=== PATIENT | female | born 1990 | race American Indian/Alaskan Native ===

== ENCOUNTER 2019-12-03 11:39 | Outpatient (CLI) | payer MEDICAID ==
[2019-12-03 12:39] VITALS: BP 124/71
[2019-12-03] MEDS ORDERED: LACTATED RINGERS 500 ML IV ONE (12:55)
[2019-12-03 13:27] LABS: Bacteria,Urine 2+ /HPF (Negative); Bilirubin,Urine NEG (Negative); Blood,Urine NEG (Negative); Color,Urine Yellow (Yellow); Mucus,Urine FEW /HPF; Protein,Urine <15 mg/dL mg/dL (Negative); Urobilinogen,Urine < 2.0 mg/dL (<2.0)
--- NOTE | 2019-12-03 14:58 | Event Note ---
Date: 12/03/19 17 y/o today at 29 weeks EGA came to L+D with 2 day Hx of urinary frequency and lower abdominal pain. Pt says her course has been uneventful to date. Monitor: No CTXs, reactive, reassuring U/A= unremarkable Cx= long, closed, posterior, VTX floating Abdomen: not tender IMP: Abdominal wall pain PLAN: advised abdominal support
== END 2019-12-03 14:50 | disposition home or self-care (01) ==
LOC: TRG 11:39 → APU 11:39 → TRG 14:50
PROVIDERS: ATTEND Obstetrics & Gynecology
DX: O47.02 False labor before 37 completed weeks of gestation, second trimester (principal); Z3A.26 26 weeks gestation of pregnancy
CPT/HCPCS: 59025; 81001

== ENCOUNTER 2019-12-30 08:32 | Outpatient (CLI) | payer MEDICAID ==
[2019-12-30 09:03] VITALS: BP 116/73
[2019-12-30] MEDS ORDERED: LACTATED RINGERS 1,000 ML IV ONE (09:59)
[2019-12-30 10:21] LABS: Bilirubin,Urine NEG (Negative); Blood,Urine NEG (Negative); Color,Urine Yellow (Yellow); Protein,Urine <15 mg/dL mg/dL (Negative); Urobilinogen,Urine < 2.0 mg/dL (<2.0); WBC,Urine < 1.0 /HPF (0.0-6.0)
--- NOTE | 2020-01-01 11:25 | Ultrasound Report ---
ULTRASOUND OBSTETRIC LIMITED ULTRASOUND BIOPHYSICAL PROFILE INDICATION / CLINICAL INFORMATION: BPP/PLACENTA WELL BEING. Clinical Gestational Age (GA): 29 weeks, 6 days COMPARISON: None available. FINDINGS: BREATHING MOVEMENT = 2 GROSS BODY MOVEMENT = 2 TONE = 2 QUALITATIVE AMNIOTIC FLUID VOLUME = 2 TOTAL BIOPHYSICAL SCORE = 8/8 HEART RATE (beats per minute): 129 AMNIOTIC FLUID INDEX (cm) = 6.7 (normal = 7-24 cm) PRESENTATION: Cephalic. ADDITIONAL FINDINGS: Grade 0 placenta without evidence of placental abruption. IMPRESSION: 1. Biophysical Score = 8/8 2. Slightly decreased amniotic fluid index as above. 3. Additional findings as above. Signer Name: Rachid Jaime MD Signed: 12/30/2019 1:50 PM Workstation Name: [id number]
== END 2019-12-30 13:00 | disposition home or self-care (01) ==
LOC: TRG 08:32 → APU 08:33 → TRG 13:00
PROVIDERS: ATTEND Obstetrics & Gynecology
DX: O26.893 Other specified pregnancy related conditions, third trimester (principal); R10.31 Right lower quadrant pain; Z3A.29 29 weeks gestation of pregnancy
CPT/HCPCS: 59025; 76815; 76819; 81001

== ENCOUNTER 2019-12-31 12:44 | Outpatient (CLI) | payer MEDICAID ==
[2019-12-31] MEDS ORDERED: ACETAMINOPHEN 500 MG TAB PO STA (14:19)
[2019-12-31] MEDS ORDERED: ACETAMINOPHEN 500 MG TAB ONE (14:23)
== END 2019-12-31 14:20 | disposition home or self-care (01) ==
LOC: APU 12:44 → TRG 12:44
PROVIDERS: ATTEND Obstetrics & Gynecology
DX: O26.893 Other specified pregnancy related conditions, third trimester (principal); R10.9 Unspecified abdominal pain; Z3A.30 30 weeks gestation of pregnancy
CPT/HCPCS: 59025

== ENCOUNTER 2020-01-25 11:14 | Inpatient (IN) | payer MEDICAID ==
[2020-01-25] MEDS ORDERED: LACTATED RINGERS 1,000 ML IV ONE (12:38)
--- NOTE | 2020-01-25 14:08 | Ultrasound Report ---
ULTRASOUND OBSTETRIC INDICATION / CLINICAL INFORMATION: low fluid. Clinical Gestational Age (GA): TECHNIQUE: Transabdominal. COMPARISON: None available. FINDINGS: There is a single intrauterine . Biparietal Diameter = cm = weeks, day(s). Heart Rate: 152 beats per minute. Position: cephalic. Amniotic Fluid Volume: Decreased Amniotic Fluid Index (CELESTINO) in cm (if calculated): 5.3. Maternal Adnexa: No significant abnormality. IMPRESSION: 1. Decreased amniotic fluid as noted Signer Name: Keith Yang MD Signed: 01/25/2020 2:04 PM Workstation Name: [id number]
[2020-01-25] MEDS: BETAMET ACET/BETAMET NA PH 6 MG/ML INJ 5 ML MDV IM SCH (15:19)
--- NOTE | 2020-01-25 15:42 | History and Physical Report ---
History of Present Illness Date of examination: 01/25/20 Date of admission: 01/25/2020 Chief complaint: oligohydramnios History of present illness: 29 yo G1 @ 33.4 weeks sent from [facility] for oligohydramnios in office with CELESTINO of ~4. no LOF, no VB and no contractions. Nitrazine negative in OB triage, repeat CELESTINO 5 as per [facility] recommendation, plan for admission, steroids and repeat CELESTINO in am, IF CELESTINO persistently low plan for delivery when she has completed steroids per [facility]. PMHX: CHTN on labetalol 200mg BID Past History Past Medical History: hypertension Past Surgical History: no surgical history Family/Genetic History: none Social history: no significant social history - Obstetrical History Expected Date of Delivery: 03/10/20 Actual Gestation: 33 Week(s) 4 Day(s) : 1 Medications and Allergies Allergies Allergy/AdvReac Type Severity Reaction Status Date / Time No Known Allergies Allergy Verified 01/25/20 11:38 Home Medications Medication Instructions Recorded Confirmed Last Taken Type Nitrofurantoin [place]/M-Cryst 100 mg PO Q12HR #20 capsule 01/03/20 Unknown Rx [Macrobid CAP] Active Meds: Active Medications Betamethasone Acet/Betameth SodPhos (Celestone Soluspan) 12 mg IM Q24H MICHAEL Stop: 01/26/20 15:01 Last Admin: 01/25/20 15:19 Dose: 12 mg Documented by: Review of Systems All systems: negative (denies OB compalint) - Vital Signs Vital signs: Vital Signs Pulse BP 82 134/87 01/25/20 11:51 01/25/20 11:51 Temp Pulse Resp BP Pulse Ox 98 F 85 20 123/65 01/25/20 11:52 01/25/20 14:54 01/25/20 11:52 01/25/20 14:54 - Physical Exam Cardiovascular: Regular rate Lungs: Positive: Clear to auscultation Abdomen: Positive: normal appearance, soft, normal bowel sounds Genitourinary (Female): Positive: normal external genitalia Anus/Rectum: Positive: normal perianal skin Extremities: Positive: normal Deep Tendon Reflex Grade: Normal +2 - Obstetrical FHR: category 1 Results All other labs normal. 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
[2020-01-25] MEDS ORDERED: LACTATED RINGERS 1,000 ML ONE (16:07)
[2020-01-25 19:15] LABS: Basophils % (Auto) 0.3 % (0.0-1.8); Eosinophils % (Auto) 0.1 % (0.0-4.3); Hemoglobin 10.4 gm/dl (10.1-14.3); Lymphocytes # (Auto) 0.9 K/mm3 (1.2-5.4); Lymphocytes % (Auto) 10.3 % (13.4-35.0); Mean Corpuscular HGB Conc 34 % (30-34); Mean Corpuscular Volume 88 fl (79-97); Monocytes # (Auto) 0.2 K/mm3 (0.0-0.8); Platelet Count 267 K/mm3 (140-440); Red Blood Count 3.51 M/mm3 (3.65-5.03)
[2020-01-25 19:34] LABS: Alanine Aminotransferase 22 units/L (7-56); Uric Acid 4.7 mg/dL (3.5-7.6)
--- NOTE | 2020-01-26 07:40 | Ultrasound Report ---
US OB follow up INDICATION / CLINICAL INFORMATION: repeat CELSETINO. COMPARISON: One day prior FINDINGS: lie is cephalic. heart rate is 134. Amniotic fluid index is 4.7 cm (previously 5.3 cm). IMPRESSION: 1. Persistent oligohydramnios, as above. Signer Name: Sandro Castillo MD Signed: 01/26/2020 7:36 AM Workstation Name: [employer]
[2020-01-26] MEDS ORDERED: DINOPROSTONE 10 MG VAG SUPP VG NR (08:45)
--- NOTE | 2020-01-26 09:08 | Progress Note ---
Assessment and Plan - Patient Problems (1) Oligohydramnios antepartum Current Visit: Yes Status: Acute Plan to address problem: --For IOL for oligohydramnios --S/p BMZ x 1, planning for BMZ #2 during IOL --Proceed with cervidil per protocol for cervical ripening, followed by pitocin prn --Anticipate --Desires future fertility (2) Chronic hypertension affecting Current Visit: Yes Status: Acute Plan to address problem: --BPs well controlled --Continue Labetolol 200mg BID --Monitor for s/sx of preeclampsia Subjective - Subjective Date of service: 01/26/20 Principal diagnosis: oligohydramnois Interval history: Repeat CELESTINO today found to be 4.7. Oligohydramnios. Given olighydramnios, plan for IOL. Patient agrees. Plan to start with cervidil followed by pitocin prn. No current labor complaints or PIH symptoms. + FM. Blood pressures well controlled on current regimen. Patient reports: new complaints Objective - Vital Signs Vital Signs: Vital Signs - 12hr 01/25/20 01/25/20 01/26/20 23:20 23:44 00:00 Temperature 97.9 F Pulse Rate 88 83 83 Respiratory 18 Rate Blood Pressure 128/82 121/61 Blood Pressure 121/61 [Left] O2 Sat by Pulse 100 Oximetry 01/26/20 01/26/20 01/26/20 03:22 04:00 04:17 Temperature 98.2 F Pulse Rate 86 92 H 92 H Respiratory 18 Rate Blood Pressure 144/73 130/77 Blood Pressure 130/77 [Left] O2 Sat by Pulse 98 Oximetry 01/26/20 01/26/20 01/26/20 05:17 06:16 07:30 Temperature 97.7 F Pulse Rate 94 H 90 Respiratory 18 Rate Blood Pressure 135/76 137/91 Blood Pressure [Left] O2 Sat by Pulse Oximetry 01/26/20 07:36 Temperature Pulse Rate 88 Respiratory Rate Blood Pressure 132/87 Blood Pressure [Left] O2 Sat by Pulse Oximetry - Exam Abdomen: Present: normal appearance, normal bowel sounds, other (gravid) FHR: category 1 Uterine Contraction Monitor Mode: External Uterine Contraction Pattern: Absent - Labs Labs: Abnormal Labs 01/25/20 01/25/20 18:47 18:47 RBC 3.51 L RDW 13.0 L Lymph % (Auto) 10.3 L Lymph # (Auto) 0.9 L Seg Neutrophils % 87.3 H Seg Neutrophils # 8.0 H Lactate Dehydrogenase 220 H Laboratory Results - last 24 hr 01/25/20 01/25/20 01/25/20 18:40 18:47 18:47 WBC 9.2 RBC 3.51 L Hgb 10.4 Hct 31.0 MCV 88 MCH 30 MCHC 34 RDW 13.0 L Plt Count 267 Lymph % (Auto) 10.3 L [place] % (Auto) 2.0 Eos % (Auto) 0.1 Baso % (Auto) 0.3 Lymph # (Auto) 0.9 L [place] # (Auto) 0.2 Eos # (Auto) 0.0 Baso # (Auto) 0.0 Seg Neutrophils % 87.3 H Seg Neutrophils # 8.0 H Creatinine 0.6 Estimated GFR > 60 Uric Acid 4.7 AST 23 ALT 22 Lactate Dehydrogenase 220 H Blood Type B POSITIVE Antibody Screen Negative
[2020-01-26] MEDS ORDERED: LACTATED RINGERS 1,000 ML ONE (10:03)
[2020-01-26] MEDS: BETAMET ACET/BETAMET NA PH 6 MG/ML INJ 5 ML MDV IM SCH (15:12)
[2020-01-26] MEDS ORDERED: AMPICILLIN/NS 2 GM/100 ML 2 GM/100 ML BAG IV ONE (18:00)
[2020-01-26] MEDS ORDERED: AMPICILLIN/NS 1 GM/50 ML 1 GM/50 ML BAG IV ONE (22:00)
[2020-01-27] MEDS ORDERED: LACTATED RINGERS 1,000 ML ONE (00:56)
[2020-01-27] MEDS: LACTATED RINGERS 1,000 ML IV SCH (01:00)
[2020-01-27] MEDS: AMPICILLIN/NS 1 GM/50 ML 1 GM/50 ML BAG IV SCH ×2 (03:05→06:40)
[2020-01-27] MEDS ORDERED: DINOPROSTONE 10 MG VAG SUPP VG ONE (06:18)
--- NOTE | 2020-01-27 09:58 | Progress Note ---
Assessment and Plan - Patient Problems (1) Chronic hypertension affecting Current Visit: Yes Status: Acute Plan to address problem: Controlled well. Cont Labetalol. (2) Oligohydramnios antepartum Current Visit: Yes Status: Acute Plan to address problem: Cont IOL. Will give another Cervidil for ripening. Subjective - Subjective Date of service: 01/27/20 Principal diagnosis: oligohydramnois Patient reports: new complaints (No new complaints. PT was 1.5 cm and thick on exam this am per RN. PT is s/p cervidil removal this morning. Good FM. No preeclamptic sxs.) Objective - Vital Signs Vital Signs: Vital Signs - 12hr 01/26/20 01/26/20 01/26/20 21:57 22:23 22:31 Temperature Pulse Rate 114 H 105 H 105 H Blood Pressure 122/56 129/67 129/67 01/26/20 01/27/20 01/27/20 23:29 00:23 01:23 Temperature Pulse Rate 93 H 98 H 94 H Blood Pressure 145/90 132/86 125/64 01/27/20 01/27/20 01/27/20 02:23 03:23 04:23 Temperature Pulse Rate 111 H 114 H 96 H Blood Pressure 111/64 122/70 139/81 01/27/20 01/27/20 01/27/20 05:23 06:23 06:24 Temperature Pulse Rate 100 H 89 105 H Blood Pressure 141/80 133/78 116/72 01/27/20 01/27/20 01/27/20 07:25 08:11 08:23 Temperature 98.0 F Pulse Rate 93 H 105 H Blood Pressure 132/72 121/69 01/27/20 09:23 Temperature Pulse Rate 96 H Blood Pressure 134/80 - Exam FHR: auscultation normal, category 1 Uterine Contraction Pattern: Irregular - Labs Labs: Abnormal Labs 01/25/20 01/25/20 18:47 18:47 RBC 3.51 L RDW 13.0 L Lymph % (Auto) 10.3 L Lymph # (Auto) 0.9 L Seg Neutrophils % 87.3 H Seg Neutrophils # 8.0 H Lactate Dehydrogenase 220 H Laboratory Results - last 24 hr 01/26/20 01/26/20 09:24 19:13 Coronavirus (PCR) Negative Rubella IgG Antibody Immune
[2020-01-27] MEDS ORDERED: ACETAMINOPHEN 325 MG TAB PO ONE (18:00)
[2020-01-28] MEDS ORDERED: OXYTOCIN DRIP 30,000 MILLIUNITS/500 ML BAG IV ONE (00:08)
[2020-01-28] MEDS ORDERED: OXYTOCIN DRIP 30 UNITS/500 ML BAG IV SCH (01:00)
--- NOTE | 2020-01-28 10:07 | Progress Note ---
Assessment and Plan A: at 34 weeks gestation. Oligohydramnios. IOL. P: Care is being managed by due to gestation. Continuous EFM. GBS prophylaxis when in active labor. Subjective - Subjective Date of service: 01/28/20 Principal diagnosis: oligohydramnois Patient reports: movement normal, contractions, no new complaints, no loss of fluid, no vaginal bleeding Objective - Vital Signs Vital Signs: Vital Signs - 12hr 01/28/20 01/28/20 01/28/20 00:15 00:21 08:50 Temperature 98.0 F Pulse Rate 106 H 106 H 89 Respiratory 16 Rate Blood Pressure 136/71 136/71 Blood Pressure 138/83 [Right] O2 Sat by Pulse 99 Oximetry 01/28/20 09:06 Temperature Pulse Rate 89 Respiratory Rate Blood Pressure 134/83 Blood Pressure [Right] O2 Sat by Pulse Oximetry - Exam Narrative Exam: Patient at 34 weeks being induced for oligohydramnios. Has received course of steroids. Abdomen: Present: normal appearance, soft. Absent: distention, tenderness, guarding, rigidity Uterine Contraction Pattern: Irregular Uterine Contraction Intensity: Mild - Labs Labs: Abnormal Labs 01/25/20 01/25/20 18:47 18:47 RBC 3.51 L RDW 13.0 L Lymph % (Auto) 10.3 L Lymph # (Auto) 0.9 L Seg Neutrophils % 87.3 H Seg Neutrophils # 8.0 H Lactate Dehydrogenase 220 H
[2020-01-28] MEDS: LACTATED RINGERS 1,000 ML IV SCH ×2 (12:49→23:39)
[2020-01-28] MEDS: AMPICILLIN/NS 1 GM/50 ML 1 GM/50 ML BAG IV SCH (14:00)
[2020-01-28] MEDS ORDERED: ACETAMINOPHEN 325 MG TAB PO ONE (16:36)
[2020-01-28] MEDS ORDERED: DINOPROSTONE 10 MG VAG SUPP VG ONE (21:00)
[2020-01-29 00:22] LABS: Basophils % (Auto) 0.3 % (0.0-1.8); Eosinophils % (Auto) 0.5 % (0.0-4.3); Hematocrit 27.4 % (30.3-42.9); Hemoglobin 9.2 gm/dl (10.1-14.3); Lymphocytes # (Auto) 2.2 K/mm3 (1.2-5.4); Lymphocytes % (Auto) 26.8 % (13.4-35.0); Mean Corpuscular HGB Conc 34 % (30-34); Mean Corpuscular Volume 89 fl (79-97); Monocytes # (Auto) 0.9 K/mm3 (0.0-0.8); Monocytes % (Auto) 10.9 % (0.0-7.3); Platelet Count 247 K/mm3 (140-440); Red Blood Count 3.09 M/mm3 (3.65-5.03)
--- NOTE | 2020-01-29 09:55 | Ultrasound Report ---
ULTRASOUND OBSTETRIC LIMITED ULTRASOUND BIOPHYSICAL PROFILE INDICATION / CLINICAL INFORMATION: Evaluate amniotic fluid index and well being. COMPARISON: Limited OB ultrasound from 01/26/2020. FINDINGS: AMNIOTIC FLUID INDEX (cm) = 6.3 PRESENTATION: Cephalic. HEART RATE (beats per minute): 156 ADDITIONAL FINDINGS: None. IMPRESSION: Decreased amniotic fluid index of 6.3 cm. No other significant sonographic abnormality of the pelvis. Signer Name: Chidi José MD Signed: 01/29/2020 9:50 AM Workstation Name: [email or web address]
[2020-01-29] MEDS ORDERED: fentaNYL 100 MCG/2 ML INJ ONE (10:25)
--- NOTE | 2020-01-29 11:47 | Ultrasound Report ---
BIOPHYSICAL PROFILE HISTORY: Evaluate well being. FINDINGS: Biophysical profile is normal at 8/8. Signer Name: Linden Richey MD Signed: 01/29/2020 11:43 AM Workstation Name: [id number]
--- NOTE | 2020-01-29 13:03 | Progress Note ---
Assessment and Plan - Patient Problems (1) Oligohydramnios antepartum Current Visit: Yes Status: Acute Plan to address problem: --Hold IOL for oligohydramnios at CELESTINO now resolved at 6.3 cm on recheck, BPP 8/8 --S/p BMZ x 2, s/p cervidil and pitocin without significant cervical change --Repeat CELESTINO in AM, 01/29 AM. If wnl, plan for discharge home. If oligohydramnois, continue IOL --Plan discussed with [facility], agreeable with plan of care --Anticipate if labor or otherwise indicated --Desires future fertility (2) Chronic hypertension affecting Current Visit: Yes Status: Acute Plan to address problem: --BPs well controlled --Continue Labetolol 200mg BID --Monitor for s/sx of preeclampsia Subjective - Subjective Date of service: 01/29/20 Principal diagnosis: oligohydramnois Interval history: Late entry. Saw patient at 0915AM. Patient frustrated with the lack of delivery s/p pitocin and cerdicil, cervix still at 1 cm. Patient to obtain US to assess for fluid and place cook catheter. Plan for remove cook catheter if no longer oligo. US showing CELESTINO 6.3. Plan of care discussed with Byron with [facility]. Hold induction for now. Repeat CELESTINO in AM. If normalized plan for discharge home. Plan to monitor fluid at outpatient. Patient reports: movement normal, contractions, no new complaints, no loss of fluid, no vaginal bleeding Objective - Vital Signs Vital Signs: Vital Signs - 12hr 01/29/20 01/29/20 01/29/20 04:03 04:05 07:30 Temperature 98.3 F 97.7 F Pulse Rate 87 Blood Pressure 133/77 - Exam Abdomen: Present: normal appearance, normal bowel sounds, other (gravid) FHR: category 1 Uterine Contraction Monitor Mode: External Uterine Contraction Pattern: Irregular - Labs Labs: Abnormal Labs 01/25/20 01/25/20 01/28/20 18:47 18:47 23:57 RBC 3.51 L 3.09 L Hgb 9.2 L Hct 27.4 L RDW 13.0 L 13.0 L Lymph % (Auto) 10.3 L [place] % (Auto) 10.9 H Lymph # (Auto) 0.9 L [place] # (Auto) 0.9 H Seg Neutrophils % 87.3 H Seg Neutrophils # 8.0 H Lactate Dehydrogenase 220 H Laboratory Results - last 24 hr 01/28/20 01/28/20 18:30 23:57 WBC 8.4 RBC 3.09 L Hgb 9.2 L Hct 27.4 L MCV 89 MCH 30 MCHC 34 RDW 13.0 L Plt Count 247 Lymph % (Auto) 26.8 [place] % (Auto) 10.9 H Eos % (Auto) 0.5 Baso % (Auto) 0.3 Lymph # (Auto) 2.2 [place] # (Auto) 0.9 H Eos # (Auto) 0.0 Baso # (Auto) 0.0 Seg Neutrophils % 61.5 Seg Neutrophils # 5.1 Blood Type B POSITIVE Antibody Screen Negative
[2020-01-30] MEDS: LACTATED RINGERS 1,000 ML IV SCH (05:56)
[2020-01-30 08:01] VITALS: BP 142/96
--- NOTE | 2020-01-30 09:57 | Ultrasound Report ---
LIMITED OB ULTRASOUND HISTORY: Provided clinical history of query amniotic fluid index. Gestational age is 34 weeks and 2 d ays. COMPARISON: 01/29/2020 and 01/26/2020 limited OB ultrasounds, 01/25/2020 Limited OB ultrasound TECHNIQUE: Oh scale sonographic images were obtained of the pelvis using transabdominal ultrasound. FINDINGS: Cardiac activity is within normal limits at167 beats per minute. Presentation: Cephalic Amniotic fluid index: 9.4 cm Additional findings: None. IMPRESSION: 1. Live intrauterine canas gestation with cephalic presentation and amniotic fluid index within n ormal limits. Signer Name: Rachid Jaime MD Signed: 01/30/2020 8:57 AM Workstation Name: [id number]
== END 2020-01-30 09:50 | disposition home or self-care (01) | DRG 781 ==
LOC: TRG 11:14 → APU 11:17 → LD 15:32 → TRG 01-26 18:30 → LD 01-26 18:33
PROVIDERS: ADMIT Obstetrics & Gynecology; ATTEND Obstetrics & Gynecology
DX: O41.03X0 Oligohydramnios, third trimester, not applicable or unspecified (principal); O10.013 Pre-existing essential hypertension complicating pregnancy, third trimester; Z3A.33 33 weeks gestation of pregnancy; Z20.828 Contact with and (suspected) exposure to other viral communicable diseases
CPT/HCPCS: 36415; 76815; 76816; 76819; 82565; 83615; 84450; 84460; 84550; 85025; 85027; 86762; 86850; 86900; 86901; 87116; G0378; J0290; J0702; J2590; J3010; J7120; U0003-CS

== ENCOUNTER 2020-01-30 18:28 | Inpatient (IN) | payer MEDICAID ==
--- NOTE | 2020-01-30 19:21 | Anesthesia Consultation ---
Anesthesia Consult and Med Hx Date of service: 01/30/20 - Airway Anesthetic Teeth Evaluation: Good ROM Head & Neck: Adequate Mental/Hyoid Distance: Adequate Mallampati Class: Class II Intubation Access Assessment: Probably Good - Pulmonary Exam CTA: Yes - Cardiac Exam Cardiac Exam: RRR - Pre-Operative Health Status ASA Pre-Surgery Classification: ASA3 Proposed Anesthetic Plan: Spinal - Pulmonary Hx Asthma: No - Cardiovascular System Hx Hypertension: Yes (takes labetalol) - Central Nervous System Hx Seizures: No Hx Psychiatric Problems: No - Endocrine Hx Renal Disease: No Hx Hypothyroidism: No Hx Hyperthyroidism: No - Hematic Hx Anemia: No Hx Sickle Cell Disease: No - Other Systems Hx Alcohol Use: No Hx Obesity: Yes
--- NOTE | 2020-01-30 19:22 | Anesthesia Day of Surgery ---
Anesthesia Day of Surgery - Day of Surgery Patient Examined: Yes Patient H&P Reviewed: Yes Patient is NPO: Yes (Ate fatty meal at 1700, ok for surgery at 0100)
[2020-01-30] MEDS ORDERED: LACTATED RINGERS 1,000 ML ONE (19:37)
[2020-01-30] MEDS ORDERED: BICITRA ORAL LIQD 30ML PO ONE (20:35)
[2020-01-30] MEDS ORDERED: METOCLOPRAMIDE 10 MG/2 ML INJ IV ONE (20:35)
[2020-01-30] MEDS ORDERED: FAMOTIDINE 20 MG/2 ML INJ IV ONE (20:35)
[2020-01-30 20:45] LABS: Basophils % (Auto) 0.3 % (0.0-1.8); Eosinophils # (Auto) 0.1 K/mm3 (0.0-0.4); Eosinophils % (Auto) 0.6 % (0.0-4.3); Hemoglobin 9.6 gm/dl (10.1-14.3); Lymphocytes # (Auto) 2.1 K/mm3 (1.2-5.4); Lymphocytes % (Auto) 21.8 % (13.4-35.0); Mean Corpuscular HGB Conc 33 % (30-34); Mean Corpuscular Volume 88 fl (79-97); Monocytes # (Auto) 0.7 K/mm3 (0.0-0.8); Monocytes % (Auto) 7.6 % (0.0-7.3); Platelet Count 268 K/mm3 (140-440); Red Cell Distribution Width 12.9 % (13.2-15.2)
[2020-01-30] MEDS ORDERED: LACTATED RINGERS 1,000 ML IV SCH (21:00)
[2020-01-31] MEDS: LACTATED RINGERS 1,000 ML IV SCH ×4 (04:24→17:28)
[2020-01-31] MEDS ORDERED: BICITRA ORAL LIQD 30ML PO ONE (07:00)
[2020-01-31] MEDS ORDERED: OXYTOCIN DRIP 30 UNITS/500 ML BAG IV SCH ×2 (07:00→12:00)
[2020-01-31] MEDS ORDERED: METOCLOPRAMIDE 10 MG/2 ML INJ IV ONE (07:00)
[2020-01-31] MEDS ORDERED: ceFAZolin/STERILE WATER 2 GM/20 ML SYRINGE IV NR (07:00)
[2020-01-31] MEDS ORDERED: FAMOTIDINE 20 MG/2 ML INJ IV ONE (07:00)
[2020-01-31] MEDS ORDERED: BUPIVACAINE/PF (0.5%) 5 MG/1 ML 30 ML VIAL INFILTRATI ONE (08:47)
[2020-01-31] MEDS ORDERED: KETOROLAC 30 MG/1 ML INJ ONE (08:47)
[2020-01-31] MEDS ORDERED: dexAMETHasone 20 MG/5 ML VIAL ONE (08:47)
[2020-01-31] MEDS ORDERED: ONDANSETRON 4 MG/2 ML INJ ONE (08:47)
--- NOTE | 2020-01-31 09:14 | History and Physical Report ---
History of Present Illness Date of examination: 01/31/20 Date of admission: 01/30/20 18:28 Chief complaint: oligohydramnios c/b HTN History of present illness: 29 yo G1 at 34w3d by CHTN on meds presenting for c/s for oligohydramnios, unable to induce last hospitalization. Denies labor complaints or PIH symptoms. +FM. Past History Past Medical History: hypertension Past Surgical History: no surgical history [employer] History: abnormal PAP smear Family/Genetic History: none Social history: no significant social history - Obstetrical History : 1 Medications and Allergies Allergies Allergy/AdvReac Type Severity Reaction Status Date / Time No Known Allergies Allergy Verified 01/25/20 11:38 Home Medications Medication Instructions Recorded Confirmed Last Taken Type Nitrofurantoin [place]/M-Cryst 100 mg PO Q12HR #20 capsule 01/03/20 01/28/20 Unknown Rx [Macrobid CAP] Active Meds: Active Medications Cefazolin Sodium (Ancef/Sterile Water 2 Gm/20 Ml) 2 gm IV PREOP NR Stop: 01/31/20 23:59 Lactated Ringer's (Lactated Ringers) 1,000 mls @ 125 mls/hr IV DIRECT MICHAEL Last Admin: 01/31/20 08:31 Dose: 125 mls/hr Documented by: Lactated Ringer's (Lactated Ringers) 1,000 mls @ 2,250 mls/hr IV PREOP MICHAEL Stop: 01/31/20 21:27 Oxytocin/Sodium Chloride (Pitocin/Ns 30 Unit/500ml) 30 units in 500 mls @ 0 mls/hr IV TITR MICHAEL; Protocol Labetalol HCl (Labetalol) 200 mg PO BID MICHAEL Last Admin: 01/30/20 23:11 Dose: 200 mg Documented by: Review of Systems All systems: negative (expect HPI) - Vital Signs Vital signs: Vital Signs Pulse Pulse Ox 101 H 90 01/30/20 19:01 01/30/20 19:01 Temp Pulse Resp BP Pulse Ox 98 F 100 H 17 130/84 99 01/31/20 07:30 01/31/20 09:09 01/31/20 07:30 01/31/20 07:30 01/31/20 09:09 - Physical Exam Abdomen: Positive: normal appearance, normal bowel sounds - Obstetrical FHR: category 1 Uterine Contraction Monitor Mode: External Results Result Diagrams: 01/30/20 19:30 Abnormal lab results 01/30/20 Range/Units 19:30 RBC 3.30 L (3.65-5.03) M/mm3 Hgb 9.6 L (10.1-14.3) gm/dl Hct 29.0 L (30.3-42.9) % RDW 12.9 L (13.2-15.2) % [place] % (Auto) 7.6 H (0.0-7.3) % All other labs normal. Assessment and Plan - Patient Problems (1) Chronic hypertension affecting Current Visit: No Status: Acute Plan to address problem: --Continue labatolol 200mg BID. --Monitor for s/sx of preeclampsia (2) Oligohydramnios antepartum Current Visit: No Status: Acute Plan to address problem: --To OR for primary c/s of oligohydramnios at term, c/b HTN, failed IOL --Consented in the chart --Questions solicited and answered --Desires future fertility
[2020-01-31] MEDS ORDERED: ceFAZolin/STERILE WATER 2 GM/20 ML SYRINGE IV ONE (10:15)
[2020-01-31] MEDS ORDERED: WATER FOR IRRIG STERILE 1,500 ML BOTTLE IR ONE (10:24)
[2020-01-31] MEDS ORDERED: SODIUM CHLORIDE 0.9% IRR 1,500 ML BOTTLE IR ONE (10:24)
[2020-01-31] MEDS ORDERED: WITCH HAZEL/ GLYCERIN PAD TP PRN (11:09)
[2020-01-31] MEDS ORDERED: LANOLIN/ZINC/DIMETHICONE (LANSINOH) 7 GM TP PRN (11:09)
[2020-01-31] MEDS ORDERED: MAGNESIUM HYDROXIDE (MOM) ORAL LIQD UDC PO PRN (11:09)
[2020-01-31] MEDS ORDERED: SENNOSIDES 8.6 MG TAB PO PRN (11:09)
[2020-01-31] MEDS ORDERED: ONDANSETRON 4 MG/2 ML INJ IV PRN (11:09)
[2020-01-31] MEDS ORDERED: HYDROCORTISONE 25 MG RECTAL SUPP PR PRN (11:09)
[2020-01-31] MEDS ORDERED: NALOXONE 0.4 MG/1 ML INJ IV PRN (11:09)
[2020-01-31] MEDS ORDERED: PROMETHAZINE 25 MG RECT SUPP PR PRN (11:09)
[2020-01-31] MEDS ORDERED: MORPHINE 4 MG/1 ML INJ IV PRN (11:09)
--- NOTE | 2020-01-31 11:13 | Procedure Note ---
OB Delivery Note - Delivery Date of Delivery: 01/31/20 Surgeon: ORIANA SANTANA JR Estimated blood loss: other (400cc) - Section Preop diagnosis: arrest of dilation, other (oligohydramnios) Postop diagnosis: same section procedure: section, primary low transverse Disposition: PACU Complications: none Narrative: Indication: 29-year-old G1 at 34 weeks 3 days complicated by chronic hypertension presenting for primary for oligohydramnios, failed induction of labor Findings: Normal uterus, tubes and ovaries. Clear fluid. No nuchal cord. Delivery of male at 1031 Apgars 9/9 Weight 2605 g Height 18.5 inches EBL 400 cc Urine output 550 cc Intraoperative IV fluids 1500 cc Procedure: Patient was taken to the operating room prepped and draped in the usual sterile fashion. Pfannenstiel skin incision was made and carried down to the underlying fascia. Fascia was incised and the incision was distended bilaterally. Rectus fascia was dissected off the rectus muscle superiorly and inferiorly. Peritoneum was identified and entered. Peritoneal incision extended superiorly and inferiorly. The bladder was visualized. The bladder blade was placed. Uterine hysterotomy incision was made and extended bilaterally. The baby was delivered in the typical vertex fashion. Baby was bulb suction at delivery. The cord was cut and clamped and handed off to the team. The placenta was delivered spontaneously. The uterus was exteriorized and cleared of all clots and debris. Uterine incision was closed with a 0 Vicryl in a running locked fashion. [id number] sutures were completed using 2-0 Vicryl to obtain hemostasis at the uterine incision. Good hemostasis was noted. The urine was noted to be clear. Uterus, tubes, and ovaries were returned to the abdominal cavity. Bilateral gutters were cleared and the abdomen and pelvis were irrigated. Good hemostasis noted. The rectus muscle was reapproximated with 2-0 Vicryl. Attention was directed towards the rectus fascia which was reapproximated with 0 PDS in a running fashion. The subcutaneous tissue was irrigated and reapproximated with 2-0 Vicryl in a running fashion. Skin was closed with a 4-0 Vicryl in a subcuticular fashion. The procedure was completed and the patient tolerated the procedure well. All instruments and lap counts were correct x2. - Infant A at 1 minute: 9 at 5 minutes: 9 Gender: Male
--- NOTE | 2020-01-31 12:23 | Progress Note ---
Regional Anesthesia Block - Regional Anesthesia Block Start Time: 11:30 Stop Time: 11:35 Performed By:: JAZMIN LEMUS Procedure: U/S guided bilateral tap block performed for post-operative pain requested by Dr. Epstein. H&P & labs reviewed. Procedure explained, questions answered, consent obtained. Patient in the supine position with ekg, blood pressure cuff and pulse ox on and working in PACU. Timeout performed immediately before start of procedure. Probe placed in the mid-axillary line and the external oblique, internal oblique, and transverse abdominus muscles identified. Skin was cleansed with 0.5% Chlorahexadine and allowed to dry. A 4" 20 G Humphries echogenic needle was advanced in plane until the tip was in the fascial plane between the internal oblique and the transverse abdominus. After negative aspiration 35 ml/side of [30 ml 0.5% Bupivacaine], [50 mcg dexmedetomidine], [8 mg dexamethasone], and [40 ml sterile saline] was injected in 5 ml increments with negative aspiration in between. Patient tolerated procedure well. Larissa ERICKSON
--- NOTE | 2020-01-31 12:23 | Post Anesthesia Evaluation ---
- Post Anesthesia Evaluation Patient Participated: Yes Airway Patent: Yes Stable Respiratory Function: Yes Nausea/Vomiting: No Temp > 96.8F: Yes Pain Manageable: Yes Adequeate Hydration: Yes Anesthesia Complications: No Block Receding Appropriately: Yes
[2020-01-31] MEDS: KETOROLAC 30 MG/1 ML INJ IV SCH (17:27)
[2020-01-31] MEDS: oxyCODONE /ACETAMINOPHEN 5-325MG TAB PO PRN (22:39)
[2020-01-31 23:16] LABS: Hematocrit 26.8 % (30.3-42.9); Hemoglobin 8.7 gm/dl (10.1-14.3)
[2020-02-01] MEDS: KETOROLAC 30 MG/1 ML INJ IV SCH (01:37)
[2020-02-01] MEDS: SIMETHICONE 80 MG CHEW TAB PO PRN ×2 (01:38→20:20)
[2020-02-01] MEDS ORDERED: DIPHtheria,PERTUSSIS(ACELL),TETANUS VACCINE/PF 0.5 ML VIAL IM ONE (06:00)
[2020-02-01] MEDS: IBUPROFEN 800 MG TAB PO PRN ×2 (07:25→18:02)
[2020-02-01] MEDS: oxyCODONE /ACETAMINOPHEN 5-325MG TAB PO PRN ×2 (09:19→14:36)
--- NOTE | 2020-02-01 13:01 | Progress Note ---
Assessment and Plan POD # 1 A: s/p LTCS Anemia P: Continue monitoring Encourage ambulation Pain med prn Ferrous Sulfate as prescribed - Patient Problems (1) delivery delivered Current Visit: Yes Status: Acute Subjective - Subjective Date of service: 02/01/20 Principal diagnosis: primary LTCS Patient reports: appetite normal, voiding normally, pain well controlled, ambulating normally, other (PASSING GAS) : doing well, in NICU, bottle feeding Objective - Vital Signs Latest vital signs: Vital Signs Temp Pulse Resp BP BP Pulse Ox 02/01/20 11:50 97.9 F 80 20 128/85 97 02/01/20 07:51 98.0 F 87 20 124/76 100 02/01/20 05:10 98.2 F 83 18 136/87 98 02/01/20 00:25 98.3 F 94 H 20 124/73 100 01/31/20 22:39 102 H 143/91 01/31/20 21:06 98.0 F 94 H 20 142/88 92 01/31/20 16:05 98.1 F 85 18 146/94 100 01/31/20 13:30 97.7 F 79 18 145/96 100 01/31/20 12:58 97.9 F Intake and Output 01/31/20 02/01/20 02/01/20 22:59 06:59 14:59 Intake Total 1240 240 300 Output Total 2200 400 Balance -960 -160 300 Intake: IV 1000 Lactated Ringers 1,000 ml 1000 @ 125 mls/hr IV DIRECT MICHAEL Rx#:[id number] Oral 240 240 300 Output: Urine 2200 400 Indwelling Catheter 2200 400 Other: Total, Intake Amount 240 240 300 Total, Output Amount 1000 400 # Voids Indwelling Catheter 1 Void 1 - Exam Breasts: Present: normal Cardiovascular: Present: Regular rate Lungs: Present: Clear to auscultation Abdomen: Present: normal appearance, soft, normal bowel sounds Vulva: both: normal Uterus: Present: normal, firm, fundal height below umbilicus, other (Scant rubra lochia) Extremities: Present: normal Incision: Present: normal, intact, dressed - Labs Labs: Abnormal lab results 01/31/20 Range/Units 22:36 Hgb 8.7 L (10.1-14.3) gm/dl Hct 26.8 L (30.3-42.9) %
[2020-02-01] MEDS: FERROUS SULFATE 325 MG TAB PO SCH ×2 (14:36→22:47)
[2020-02-02] MEDS ORDERED: DIPHtheria,PERTUSSIS(ACELL),TETANUS VACCINE/PF 0.5 ML VIAL IM ONE (06:00)
[2020-02-02] MEDS: IBUPROFEN 800 MG TAB PO PRN ×2 (06:05→16:24)
[2020-02-02] MEDS: oxyCODONE /ACETAMINOPHEN 5-325MG TAB PO PRN ×2 (10:47→21:13)
[2020-02-02] MEDS: FERROUS SULFATE 325 MG TAB PO SCH ×2 (10:47→22:22)
--- NOTE | 2020-02-02 12:12 | Progress Note ---
Assessment and Plan - Patient Problems (1) delivery delivered Current Visit: Yes Status: Acute Plan to address problem: Continue routine PP orders Keep incision site clean and dry Anticipate d/c home tomorrow (2) Chronic hypertension affecting Current Visit: No Status: Acute Plan to address problem: Continue Labetalol 200mg po BID (3) Anemia Current Visit: Yes Status: Acute Qualifiers: Anemia type: iron deficiency Plan to address problem: Asymptomatic Increase iron rich foods into diet Continue daily oral iron supplementation as ordered Subjective - Subjective Date of service: 02/02/20 Principal diagnosis: S/P primary LTCS; POD#2 Interval history: See admission H & P; OB operative note and PP progress notes Patient reports: appetite normal, voiding normally, ambulating normally (walking to NICU several times per day without difficulty) [place]: in NICU Objective - Vital Signs Latest vital signs: Vital Signs Temp Pulse Resp BP BP Pulse Ox 02/02/20 10:47 20 02/02/20 08:30 97.8 F 94 H 18 158/97 98 02/02/20 06:46 18 02/02/20 06:29 83 131/80 02/02/20 06:05 98.2 F 93 H 20 145/97 100 02/02/20 00:53 98.7 F 84 20 126/81 98 02/01/20 22:47 87 135/90 02/01/20 22:46 89 135/90 100 02/01/20 19:51 98.5 F 91 H 20 144/89 98 02/01/20 15:35 97.8 F 101 H 20 134/78 96 Intake and Output 02/01/20 02/02/20 02/02/20 23:59 07:59 15:59 Intake Total 244 240 240 Balance 244 240 240 Intake: Oral 124 240 Intake, Free Water 120 240 Other: Total, Intake Amount 124 240 # Voids Indwelling Catheter 1 Void 1 1 - Exam Breasts: Present: normal Cardiovascular: Present: Regular rate Lungs: Present: Normal air movement Abdomen: Present: soft, tenderness Uterus: Present: firm, fundal height below umbilicus (U-2) Extremities: Present: normal Deep Tendon Reflex Grade: Normal +2 Incision: Present: dry, intact (steri-strips in place)
[2020-02-03] MEDS: FERROUS SULFATE 325 MG TAB PO SCH ×2 (10:03→22:16)
[2020-02-03] MEDS: oxyCODONE /ACETAMINOPHEN 5-325MG TAB PO PRN ×3 (10:35→23:37)
[2020-02-03] MEDS ORDERED: MAGNESIUM SULFATE 4 GM/100 ML BAG IV ONE ×2 (10:39→11:24)
--- NOTE | 2020-02-03 10:48 | Progress Note ---
Assessment and Plan A: /postop day 3 S/P primary LTCS. Severe preeclampsia. Anemia. P: Increase Labetalol to 200 mg po TID. Start magnesium sulfate. PreE labs ordered. Continue iron supplementation for anemia. Consulted with Dr. Epstein re: this patient and he states he is in agreement with this POC. Subjective - Subjective Date of service: 02/03/20 Principal diagnosis: Postop day 3 S/P primary LTCS Interval history: Patient's BPs have been increasing overnight. Now 163/106. Patient reports edema. Denies headache or visual disturbance. Plan to increase Labetalol to 200 mg po TID and plan to start magnesium sulfate. MD notified of the above. Patient's nurse notified. Discussed this plan with patient and her S.O. Patient reports: appetite normal, voiding normally, pain well controlled, flatus, no dizzy ambulation, no nauseated : doing well, in NICU Objective - Vital Signs Latest vital signs: Vital Signs Temp Pulse Resp BP BP Pulse Ox 02/03/20 10:03 96 H 163/106 02/03/20 09:00 98.9 F 99 H 20 142/94 02/03/20 05:20 99.1 F 103 H 20 143/92 100 02/03/20 01:34 98.1 F 20 140/87 02/02/20 22:22 89 139/91 02/02/20 20:02 97.9 F 94 H 18 136/94 100 02/02/20 16:24 20 02/02/20 16:00 97.2 F L 90 18 143/97 02/02/20 12:28 98.2 F 89 18 139/90 100 02/02/20 10:47 20 Intake and Output 02/02/20 02/03/20 02/03/20 23:59 07:59 15:59 Intake Total 480 480 240 Balance 480 480 240 Intake: Oral 480 240 Intake, Free Water 480 Other: Total, Intake Amount 360 240 # Voids Void 1 1 1 - Exam Cardiovascular: Present: Regular rate, No murmurs Lungs: Present: Clear to auscultation Abdomen: Present: normal appearance, soft, normal bowel sounds. Absent: d istention, tenderness, guarding, rigidity Uterus: Present: normal, firm, fundal height below umbilicus. Absent: bogginess, tenderness Extremities: Present: edema. Absent: tenderness Incision: Present: normal, dry, intact
[2020-02-03] MEDS ORDERED: LACTATED RINGERS 1,000 ML ONE (11:24)
[2020-02-03] MEDS ORDERED: MAGNESIUM SULFATE 40GM/1000ML 40 GM/1,000 ML BAG IV ONE (11:24)
[2020-02-03] MEDS: LACTATED RINGERS 1,000 ML IV SCH (11:42)
[2020-02-03] MEDS: MAGNESIUM SULFATE 40GM/1000ML 40 GM/1,000 ML BAG IV SCH (12:11)
[2020-02-03 12:30] LABS: Bilirubin,Urine NEG (Negative); Blood,Urine NEG (Negative); Color,Urine Straw (Yellow); Protein,Urine <15 mg/dL mg/dL (Negative); RBC,Urine < 1.0 /HPF (0.0-6.0); Urobilinogen,Urine < 2.0 mg/dL (<2.0); WBC,Urine < 1.0 /HPF (0.0-6.0)
[2020-02-03 14:13] LABS: Basophils # (Auto) 0.1 K/mm3 (0.0-0.1); Basophils % (Auto) 0.5 % (0.0-1.8); Eosinophils # (Auto) 0.2 K/mm3 (0.0-0.4); Eosinophils % (Auto) 1.7 % (0.0-4.3); Hematocrit 28.9 % (30.3-42.9); Hemoglobin 9.8 gm/dl (10.1-14.3); Lymphocytes # (Auto) 1.7 K/mm3 (1.2-5.4); Mean Corpuscular HGB Conc 34 % (30-34); Mean Corpuscular Volume 88 fl (79-97); Monocytes # (Auto) 0.9 K/mm3 (0.0-0.8); Monocytes % (Auto) 8.6 % (0.0-7.3); Platelet Count 249 K/mm3 (140-440); Red Blood Count 3.28 M/mm3 (3.65-5.03); Red Cell Distribution Width 13.2 % (13.2-15.2)
[2020-02-03 14:18] LABS: Alanine Aminotransferase 23 units/L (7-56); Albumin 3.2 g/dL (3.9-5); BUN/Creatinine Ratio 5; Blood Urea Nitrogen 4 mg/dL (7-17); Calcium 8.7 mg/dL (8.4-10.2); Hemolysis Index 1
[2020-02-03 14:24] LABS: Uric Acid 5.8 mg/dL (3.5-7.6)
[2020-02-03] MEDS ORDERED: hydrALAZINE 20 MG/1 ML INJ IV PRN (19:15)
[2020-02-04] MEDS: MAGNESIUM SULFATE 40GM/1000ML 40 GM/1,000 ML BAG IV SCH (05:48)
[2020-02-04] MEDS: oxyCODONE /ACETAMINOPHEN 5-325MG TAB PO PRN ×2 (10:41→21:47)
[2020-02-04] MEDS: IBUPROFEN 800 MG TAB PO PRN (10:43)
[2020-02-04] MEDS: FERROUS SULFATE 325 MG TAB PO SCH ×2 (10:44→21:47)
--- NOTE | 2020-02-04 14:19 | Progress Note ---
Assessment and Plan A: /postop day 4 S/P primary LTCS. Anemia. Preeclampsia, S/P magnesium sulfate. P: Monitor BPs. Continue Labetalol 300 mg po TID. Continue iron supplementation. Subjective - Subjective Date of service: 02/04/20 Principal diagnosis: Postop day 4 S/P primary LTCS; preeclampsia Interval history: Patient has just been transferred back to Mother/Baby floor after being in L&D. Magnesium sulfate has been stopped. Patient denies headache, dizziness, chest pain, shortness of breath, or visual disturbance. Patient reports: appetite normal, voiding normally, pain well controlled, fl atus, ambulating normally, no dizzy ambulation, no nauseated [place]: doing well Objective - Vital Signs Latest vital signs: Vital Signs Temp Pulse Resp BP BP Pulse Ox 02/04/20 12:01 98.3 F 02/04/20 11:48 90 99 02/04/20 11:43 80 96 02/04/20 11:42 76 159/96 02/04/20 11:38 77 97 02/04/20 11:33 78 97 02/04/20 11:28 76 97 02/04/20 11:23 77 97 02/04/20 11:18 79 97 02/04/20 11:12 87 98 02/04/20 11:07 95 H 99 02/04/20 11:02 83 98 02/04/20 10:57 84 98 02/04/20 10:52 89 98 02/04/20 10:47 82 96 02/04/20 10:46 83 156/95 02/04/20 10:41 84 98 02/04/20 10:36 100 H 97 02/04/20 10:31 80 95 02/04/20 10:26 87 97 02/04/20 10:21 87 97 02/04/20 10:16 85 96 02/04/20 10:11 87 96 02/04/20 10:06 86 98 02/04/20 10:01 86 98 02/04/20 09:56 85 98 02/04/20 09:51 85 98 02/04/20 09:46 88 98 02/04/20 09:41 95 H 95 02/04/20 09:36 91 H 97 02/04/20 09:31 97 H 97 02/04/20 09:26 89 98 10/25/20 09:21 91 H 97 10/25/20 09:16 90 97 10/25/20 09:11 85 97 10/25/20 09:06 91 H 97 10/25/20 09:01 83 96 10/25/20 08:56 94 H 98 10/25/20 08:51 89 96 10/25/20 08:46 86 98 10/25/20 08:41 91 H 97 10/25/20 08:36 87 97 10/25/20 08:31 94 H 96 10/25/20 08:26 93 H 97 10/25/20 08:21 89 96 10/25/20 08:16 87 97 10/25/20 08:11 85 97 10/25/20 08:06 85 98 10/25/20 08:01 86 98 10/25/20 07:56 91 H 99 10/25/20 07:51 98 H 98 10/25/20 07:46 92 H 98 10/25/20 07:41 87 98 10/25/20 07:36 99 H 99 10/25/20 07:31 103 H 99 10/25/20 07:30 98.4 F 10/25/20 07:26 97 H 98 10/25/20 07:21 96 H 99 10/25/20 07:16 97 H 95 10/25/20 07:11 82 97 10/25/20 07:06 79 97 10/25/20 07:01 98 H 98 10/25/20 06:58 86 150/95 10/25/20 06:57 88 161/95 10/25/20 06:56 87 97 10/25/20 06:51 86 97 10/25/20 06:46 80 95 10/25/20 06:41 80 94 10/25/20 06:36 81 95 10/25/20 06:31 84 95 10/25/20 06:26 80 96 10/25/20 06:21 101 H 98 10/25/20 06:16 83 96 10/25/20 06:11 89 95 10/25/20 06:06 84 95 10/25/20 06:01 81 96 10/25/20 05:57 86 145/101 10/25/20 05:56 84 97 10/25/20 05:51 90 97 10/25/20 05:46 80 96 10/25/20 05:41 98 H 95 10/25/20 05:36 88 96 10/25/20 05:31 90 97 10/25/20 05:26 88 97 10/25/20 05:21 89 97 10/25/20 05:16 87 97 10/25/20 05:11 89 97 10/25/20 05:06 85 97 10/25/20 05:01 82 96 10/25/20 04:57 83 168/93 10/25/20 04:56 84 95 10/25/20 04:51 80 95 10/25/20 04:46 85 94 10/25/20 04:41 81 95 10/25/20 04:36 84 95 10/25/20 04:31 81 96 10/25/20 04:26 83 95 10/25/20 04:21 89 95 10/25/20 04:16 81 95 10/25/20 04:11 83 95 10/25/20 04:06 82 95 10/25/20 04:01 79 95 10/25/20 03:57 82 156/87 10/25/20 03:56 82 95 10/25/20 03:51 83 95 10/25/20 03:46 81 94 10/25/20 03:41 83 96 10/25/20 03:36 87 97 10/25/20 03:31 80 97 10/25/20 03:26 84 98 10/25/20 03:21 88 98 10/25/20 03:16 97 H 98 10/25/20 03:11 80 98 10/25/20 03:06 87 97 10/25/20 03:01 87 97 10/25/20 02:57 93 H 158/96 10/25/20 02:56 95 H 98 10/25/20 02:51 93 H 98 10/25/20 02:46 87 98 10/25/20 02:41 92 H 98 10/25/20 02:36 94 H 99 10/25/20 02:31 86 96 10/25/20 02:26 86 97 10/25/20 02:21 89 97 10/25/20 02:16 92 H 97 10/25/20 02:11 102 H 97 10/25/20 02:06 89 91 10/25/20 02:03 84 87 10/25/20 02:01 86 95 10/25/20 01:57 89 143/86 10/25/20 01:56 81 96 10/25/20 01:51 79 97 10/25/20 01:46 81 98 10/25/20 01:41 82 97 10/25/20 01:36 83 96 1025/20 01:31 83 96 1025/20 01:26 82 97 1025/20 01:21 82 97 1025/20 01:16 79 97 1025/20 01:11 81 98 1025/20 01:06 86 96 10/25/20 01:01 86 95 10/25/20 00:57 84 163/93 1025/20 00:56 97 H 97 25/20 00:51 83 95 1025/20 00:46 85 95 1025/20 00:41 83 96 1025/20 00:36 81 95 1025/20 00:31 83 96 1025/20 00:26 84 96 1025/20 00:21 86 96 1025/20 00:16 83 97 10/25/20 00:11 82 97 10/25/20 00:06 84 97 10/25/20 00:01 81 97 1024/20 23:57 82 154/94 1024/20 23:56 81 98 24/20 23:51 82 98 24/20 23:46 105 H 92 24/20 23:41 97 H 98 24/20 23:36 83 99 1024/20 23:31 80 98 1024/20 23:26 97 H 97 1024/20 23:21 91 H 98 1024/20 23:16 85 98 1024/20 23:11 93 H 99 1024/20 23:06 95 H 96 1024/20 23:01 89 99 1024/20 22:57 85 143/90 1024/20 22:56 87 98 10/24/20 22:51 82 98 10/24/20 22:46 87 98 1024/20 22:41 81 98 10/24/20 22:36 89 99 1024/20 22:31 94 H 98 1024/20 22:26 89 98 10/24/20 22:21 86 98 10/24/20 22:16 86 98 10/24/20 22:11 85 98 10/24/20 22:06 85 97 1024/20 22:01 84 98 1024/20 21:57 80 144/88 1024/20 21:56 82 98 24/20 21:51 85 98 24/20 21:46 83 98 24/20 21:41 83 98 02/02/20 21:36 81 98 20 21:31 96 H 99 20 21:26 92 H 98 02/02/20 21:21 85 97 02/02/20 21:16 83 95 24/20 21:11 83 96 02/02/20 21:06 83 95 02/02/20 21:01 83 95 02/02/20 20:57 83 137/84 02/02/20 20:56 87 96 02/02/20 20:51 84 95 2420 20:46 84 95 02/02/20 20:41 81 95 02/02/20 20:36 82 96 24/20 20:31 79 96 24/20 20:26 81 97 1024/20 20:21 82 97 02/02/20 20:16 81 97 02/02/20 20:11 94 H 99 20 20:06 91 H 148/82 99 02/02/20 20:05 91 H 148/82 02/02/20 20:01 93 H 99 20 20:00 17 20 19:57 87 175/102 20 19:56 92 H 98 24/20 19:51 88 98 24/20 19:46 86 99 24/20 19:41 92 H 99 24/20 19:36 95 H 99 24/20 19:31 91 H 98 24/20 19:28 90 149/95 02/02/20 19:26 94 H 98 02/02/20 19:21 98.2 F 92 H 18 97 2420 19:16 100 H 98 24/20 19:12 18 1024/20 19:11 94 H 98 2420 19:10 92 H 160/98 10/24/20 19:06 96 H 97 10/24/20 19:01 93 H 99 1024/20 18:57 90 180/103 1024/20 18:56 94 H 98 1024/20 18:51 94 H 98 1024/20 18:46 103 H 99 1024/20 18:45 108 H 85 1024/20 18:41 104 H 98 1024/20 18:36 96 H 98 1024/20 18:31 95 H 99 24/20 18:26 94 H 92 1024/20 18:21 95 H 100 1024/20 18:16 111 H 100 1024/20 18:11 97 H 99 1024/20 18:06 104 H 99 24/20 18:01 99 H 98 24/20 17:57 97 H 165/94 24/20 17:56 100 H 98 24/20 17:51 96 H 98 24/20 17:46 95 H 98 24/20 17:41 93 H 98 24/20 17:36 100 H 99 24/20 17:31 73 100 24/20 17:26 92 H 99 24/20 17:21 88 98 24/20 17:16 94 H 97 24/20 17:11 91 H 98 24/20 17:06 92 H 99 24/20 17:01 102 H 97 24/20 16:57 92 H 146/93 1024/20 16:56 87 97 24/20 16:51 84 97 24/20 16:46 91 H 98 1024/20 16:41 87 94 1024/20 16:36 89 96 10/24/20 16:31 88 96 10/24/20 16:26 89 96 1024/20 16:21 88 97 1024/20 16:16 86 97 1024/20 16:11 95 H 97 1024/20 16:06 96 H 160/97 97 1024/20 16:02 86 160/97 1024/20 16:01 91 H 98 1024/20 15:57 88 161/92 1024/20 15:56 86 96 24/20 15:51 87 96 10/24/20 15:46 86 96 02/03/20 15:41 93 H 96 02/03/20 15:36 93 H 96 02/03/20 15:31 93 H 96 02/03/20 15:30 97 H 88 02/03/20 15:26 90 94 02/03/20 15:21 84 91 02/03/20 15:16 84 97 02/03/20 15:11 85 96 02/03/20 15:06 96 H 97 02/03/20 15:01 91 H 97 02/03/20 14:57 90 144/84 02/03/20 14:56 92 H 97 02/03/20 14:51 89 98 02/03/20 14:46 93 H 97 02/03/20 14:41 96 H 97 02/03/20 14:36 93 H 98 02/03/20 14:31 90 98 02/03/20 14:26 98.3 F 90 18 145/89 99 02/03/20 14:25 94 H 145/89 02/03/20 14:21 90 99 Intake and Output 02/03/20 02/04/20 02/04/20 23:59 07:59 15:59 Intake Total 880.833 Output Total 3950 2150 1400 Balance -3950 -1269.167 -1400 Intake: IV 880.833 MAGNESIUM SULFATE 40GM/ 880.833 1000ML 40 gm In 1,000 ml @ 2 GM/HR 50 mls/hr IV DIRECT MICHAEL Rx#:[id number] Output: Urine 3950 2150 1400 Indwelling Catheter 3950 2150 1400 Other: Total, Output Amount [phone] - Exam Abdomen: Present: normal appearance, soft, normal bowel sounds. Absent: distention, tenderness, guarding, rigidity Uterus: Present: normal, firm, fundal height below umbilicus. Absent: bogginess, tenderness Extremities: Present: normal, edema (mild pedal edema bilaterally). Absent: tenderness Incision: Present: normal, dry, intact - Labs Labs: Abnormal lab results 02/03/20 02/03/20 02/03/20 Range/Units 13:22 13:22 19:37 BUN 4 L (7-17) mg/dL Magnesium 4.80 H (1.7-2.3) mg/dL Lactate Dehydrogenase 289 H (91-180) units/L Total Protein 6.2 L (6.3-8.2) g/dL Albumin 3.2 L (3.9-5) g/dL 02/04/20 Range/Units 01:07 BUN (7-17) mg/dL Magnesium 5.60 H (1.7-2.3) mg/dL Lactate Dehydrogenase (91-180) units/L Total Protein (6.3-8.2) g/dL Albumin (3.9-5) g/dL
--- NOTE | 2020-02-04 23:57 | Consultation ---
History of Present Illness - Reason for Consult Consult date: 02/04/20 Medical management Requesting physician: MARLENI COOPER - History of Present Illness 29 yo G1 at 34w3d by CHTN on meds presenting for c/s for oligohydramnios, unable to induce last hospitalization. Denies labor complaints or PIH symptoms. +FM. Patient had on 01/31/2020 and the baby was delivered. Postop patient has been having high blood pressures. Patient is on labetalol 300 mg 3 times a day. Past History Past Medical History: hypertension Past Surgical History: no surgical history [employer] History: abnormal PAP smear Family/Genetic History: none Social history: no significant social history Past History Social history: no significant social history Medications and Allergies Allergies Allergy/AdvReac Type Severity Reaction Status Date / Time No Known Allergies Allergy Verified 01/25/20 11:38 Home Medications Medication Instructions Recorded Confirmed Last Taken Type Nitrofurantoin [place]/M-Cryst 100 mg PO Q12HR #20 capsule 01/03/20 02/02/20 Unknown Rx [Macrobid CAP] Ibuprofen [Motrin 800 MG tab] 800 mg PO Q6H PRN #30 tablet 01/31/20 Unknown Rx oxyCODONE /ACETAMINOPHEN [Percocet 1 tab PO Q6H PRN #30 tablet 01/31/20 Unknown Rx 5/325 mg] Active Meds: Active Medications Ferrous Sulfate (Feosol) 325 mg PO BID MICHAEL Last Admin: 02/04/20 21:47 Dose: 325 mg Documented by: Hydralazine HCl (Apresoline) 5 mg IV Q30MIN PRN PRN Reason: Hypertension Hydrocortisone Acetate (Anucort-Hc) 25 mg [place] BID PRN PRN Reason: Hemorrhoids Lactated Ringer's (Lactated Ringers) 1,000 mls @ 125 mls/hr IV DIRECT MICHAEL Last Admin: 02/03/20 11:42 Dose: 75 mls/hr Documented by: Oxytocin/Sodium Chloride (Pitocin/Ns 30 Unit/500ml) 30 units in 500 mls @ 0 mls/hr IV TITR MICHAEL; Protocol Oxytocin/Sodium Chloride (Pitocin/Ns 30 Unit/500ml) 30 units in 500 mls @ 40 m ls/hr IV TITR MICHAEL; Protocol Ibuprofen (Ibuprofen) 800 mg PO Q6H PRN PRN Reason: Pain, Mild (1-3) Last Admin: 02/04/20 10:43 Dose: 800 mg Documented by: Labetalol HCl (Labetalol) 300 mg PO TID MICHAEL Last Admin: 02/04/20 20:15 Dose: 300 mg Documented by: Magnesium Hydroxide (Milk Of Magnesia) 30 ml PO QHS PRN PRN Reason: Constip Unrelieved By Senna Morphine Sulfate (Morphine) 4 mg IV Q4H PRN PRN Reason: Pain , Severe (7-10) Multi-Ingredient Ointment (Lansinoh) 1 applic TP PRN PRN PRN Reason: dryness/cracking Naloxone HCl (Naloxone) 0.1 mg IV Q2MIN PRN PRN Reason: Res Rate </= 8 or 02 SAT < 92% Ondansetron HCl (Zofran) 4 mg IV Q8H PRN PRN Reason: Nausea And Vomiting Oxycodone/Acetaminophen (Percocet 5/325) 1 tab PO Q6H PRN PRN Reason: Pain, Moderate (4-6) Last Admin: 02/02/20 21:13 Dose: 1 tab Documented by: Oxycodone/Acetaminophen (Percocet 5/325) 2 tab PO Q6H PRN PRN Reason: Pain, Moderate (4-6) Last Admin: 02/04/20 21:47 Dose: 2 tab Documented by: Promethazine HCl (Phenergan) 25 mg [place] Q6H PRN PRN Reason: N/V IF NPO AND NO IV ACCESS Senna (Senokot) 17.2 mg PO QHS PRN PRN Reason: Constipation Simethicone (Mylicon) 80 mg PO Q6H PRN PRN Reason: Gas pain Last Admin: 02/01/20 20:20 Dose: 80 mg Documented by: Sodium Chloride (Sodium Chloride Flush Syringe 10 Ml) 10 ml IV PRN [facility] Witch Alena/Glycerin (Tucks Pad) 1 each TP PRN PRN PRN Reason: Hemorrhoids/cleansing/soothing Review of Systems All systems: negative Exam - Constitutional Vitals: Temp Pulse Resp BP Pulse Ox 98.2 F 96 H 18 140/79 99 02/04/20 16:29 02/04/20 20:15 02/04/20 22:47 02/04/20 20:15 02/04/20 16:29 General appearance: Present: no acute distress, well-nourished - EENT Eyes: Present: PERRL ENT: hearing intact, clear oral mucosa - Neck Neck: Present: supple, normal ROM - Respiratory Respiratory effort: normal Respiratory: bilateral: CTA - Cardiovascular Heart Sounds: Present: S1 & S2. Absent: rub, click - Extremities Extremities: pulses symmetrical, No edema Peripheral Pulses: within normal limits - Abdominal General gastrointestinal: Present: soft, non-tender, non-distended, normal bowel sounds Female genitourinary: Present: normal - Integumentary Integumentary: Present: clear, warm, dry - Musculoskeletal Musculoskeletal: gait normal, strength equal bilaterally - Psychiatric Psychiatric: appropriate mood/affect, intact judgment & insight - Neurologic Neurologic: CNII-XII intact, moves all extremities Results - Labs CBC & Chem 7: 02/03/20 13:22 02/03/20 13:22 Labs: Abnormal lab results 02/04/20 Range/Units 01:07 Magnesium 5.60 H (1.7-2.3) mg/dL Assessment and Plan - Patient Problems (1) Hypertension Current Visit: Yes Status: Chronic Qualifiers: Hypertension type: essential hypertension Qualified Code(s): I10 - Essential (primary) hypertension Plan to address problem: We will trend the blood pressure At this point we will continue the labetalol 300 mg 3 times a day and discharge on labetalol 300 mg 3 times a day if blood pressures are normal. Patient being treated for eclampsia also. No need for further antihypertensives (2) Anemia Current Visit: Yes Status: Chronic Qualifiers: Anemia type: unspecified type Qualified Code(s): D64.9 - Anemia, unspecified Plan to address problem: Check iron levels, folic acid and B12 levels (3) DVT prophylaxis Current Visit: Yes Status: Acute Plan to address problem: SCDs and GI prophylaxis
[2020-02-05] MEDS: FERROUS SULFATE 325 MG TAB PO SCH ×2 (12:14→21:39)
[2020-02-05] MEDS: oxyCODONE /ACETAMINOPHEN 5-325MG TAB PO PRN ×2 (12:14→18:45)
[2020-02-06] MEDS ORDERED: FERROUS SULFATE 325 MG TAB PO ONE (15:30)
[2020-02-06] MEDS: oxyCODONE /ACETAMINOPHEN 5-325MG TAB PO PRN ×2 (15:45→22:19)
[2020-02-06] MEDS ORDERED: HYDROcodone/ACETAMINOPHEN 5-325 MG TAB ONE (16:00)
--- NOTE | 2020-02-06 17:11 | Discharge Summary ---
Providers - Providers Date of Admission: 01/30/20 18:28 Date of discharge: 02/06/20 Attending physician: MARLENI COOPER Primary care physician: ORIANA SANTANA JR, MD Hospitalization Reason for admission: section, induction of labor Delivery: Procedure: section, primary low transverse Episiotomy: none Laceration: none Incision: dry, intact (steri-strips intact) Other procedures: none complications: none Discharge diagnosis: IUP at term delivered baby: male Hospital course: See admission H & P, OB operative summary and PP progress notes Condition at discharge: Stable Disposition: DC- TO HOME OR SELFCARE - Discharge Diagnoses (1) delivery delivered Status: Acute (2) Chronic hypertension affecting Status: Acute (3) Anemia Status: Chronic Qualifiers: Anemia type: unspecified type Qualified Code(s): D64.9 - Anemia, unspecified Comment: Asymptomatic Plan - Discharge Medications Prescriptions: Ferrous Sulfate [Feosol 325 MG tab] 325 mg PO BID 30 Days #60 tablet Ibuprofen [Motrin 800 MG tab] 800 mg PO Q6H PRN #30 tablet PRN Reason: Pain, Mild (1-3) oxyCODONE /ACETAMINOPHEN [Percocet 5/325 mg] 1 tab PO Q6H PRN #30 tablet PRN Reason: Pain, Moderate (4-6) - Provider Discharge Summary Activity: routine, no sex for 6 weeks, no heavy lifting 4 weeks, no strenuous exercise Diet: other (Iron rich diet) Instructions: routine Additional instructions: [] Smoking cessation referral if applicable(refer to patient education folder for contact #) [] Refer to [facility] Booklet Call your doctor immediately for: * Fever > 100.5 * Heavy vaginal bleeding ( >1 pad per hour) * Severe persistent headache * Shortness of breath * Reddened, hot, painful area to leg or breast * Drainage or odor from incision. * Keep incision clean and dry at all times and follow doctor's instructions regarding bathing/showering - Follow up plan Follow up: ORIANA SANTANA JR, MD [Primary Care Provider] - 7 Days
--- NOTE | 2020-02-06 19:41 | Progress Note ---
Assessment and Plan - Patient Problems (1) Anemia Current Visit: Yes Status: Chronic Qualifiers: Anemia type: unspecified type Qualified Code(s): D64.9 - Anemia, unspecified Plan to address problem: - Continue multivitamin and iron on DC - Trend CBC - Transfuse as needed if hbg <7 (2) Hypertension Current Visit: Yes Status: Chronic Qualifiers: Hypertension type: essential hypertension Qualified Code(s): I10 - Essential (primary) hypertension Plan to address problem: -Continue the labetalol 300 mg 3 times a day and discharge on labetalol 300 mg 3 times a day if blood pressures are normal. - Educated on life style modifications - Encouraged PCP f/u (3) DVT prophylaxis Current Visit: Yes Status: Acute Plan to address problem: - SCDs to BLE - GI and DVT prophylaxis History Interval history: 29 yo G1 at 34w3d with Chronic HTN on meds presenting for c/s for oligohydramnios, unable to induce last hospitalization. Denies labor complaints or PIH symptoms. +FM. Patient had on 01/31/2020 and the baby was delivered. Postop patient has been having high blood pressures. Patient is on labetalol 300 mg 3 times a day. No acute events overnight. Pt does not have any complaints. She is curiois about her outpt care and f/u for HTN. Advised her on need to establish and f/u with PCP for HTN control. She verbalized understanding. Hospitalist Physical - Constitutional Vitals: Temp Pulse Resp BP Pulse Ox 97.2 F L 86 20 131/78 99 02/06/20 16:28 02/06/20 16:28 02/06/20 16:28 02/06/20 16:28 02/05/20 20:11 General appearance: Present: no acute distress, well-nourished - EENT Eyes: Present: PERRL, EOM intact ENT: hearing intact, clear oral mucosa - Neck Neck: Present: supple, normal ROM - Respiratory Respiratory effort: normal Respiratory: bilateral: CTA - Cardiovascular Rhythm: regular Heart Sounds: Present: S1 & S2. Absent: systolic murmur, diastolic murmur - Extremities Extremities: no ischemia, pulses intact, pulses symmetrical, No edema, normal temperature, normal color, Full ROM Extremity abnormal: edema - Peripheral Assessment Left Foot Edema Type: Non-pitting Edema Degree: 1+ Capillary Refill: < 3 seconds Skin Temperature: Warm Peripheral Pulses: within normal limits - Abdominal General gastrointestinal: soft, non-tender, non-distended Localized gastrointestinal: tender: suprapubic - Integumentary Integumentary: Present: clear, warm, dry - Psychiatric Psychiatric: appropriate mood/affect, cooperative - Neurologic Neurologic: CNII-XII intact, no focal deficits, moves all extremities Results - Labs CBC & Chem 7: 02/03/20 13:22 02/03/20 13:22 Labs: Laboratory Last Values WBC 10.5 K/mm3 (4.5-11.0) 02/03/20 13:22 RBC 3.28 M/mm3 (3.65-5.03) L 02/03/20 13:22 Hgb 9.8 gm/dl (10.1-14.3) L 02/03/20 13:22 Hct 28.9 % (30.3-42.9) L 02/03/20 13:22 MCV 88 fl (79-97) 02/03/20 13:22 MCH 30 pg (28-32) 02/03/20 13:22 MCHC 34 % (30-34) 02/03/20 13:22 RDW 13.2 % (13.2-15.2) 02/03/20 13:22 Plt Count 249 K/mm3 (140-440) 02/03/20 13:22 Lymph % (Auto) 16.0 % (13.4-35.0) 02/03/20 13:22 Owen % (Auto) 8.6 % (0.0-7.3) H 02/03/20 13:22 Eos % (Auto) 1.7 % (0.0-4.3) 02/03/20 13:22 Baso % (Auto) 0.5 % (0.0-1.8) 02/03/20 13:22 Lymph # (Auto) 1.7 K/mm3 (1.2-5.4) 02/03/20 13:22 Owen # (Auto) 0.9 K/mm3 (0.0-0.8) H 02/03/20 13:22 Eos # (Auto) 0.2 K/mm3 (0.0-0.4) 02/03/20 13:22 Baso # (Auto) 0.1 K/mm3 (0.0-0.1) 02/03/20 13:22 Seg Neutrophils % 73.2 % (40.0-70.0) H 02/03/20 13:22 Seg Neutrophils # 7.7 K/mm3 (1.8-7.7) 02/03/20 13:22 Sodium 139 mmol/L (137-145) 02/03/20 13:22 Potassium 3.8 mmol/L (3.6-5.0) 02/03/20 13:22 Chloride 102.8 mmol/L (98-107) 02/03/20 13:22 Carbon Dioxide 28 mmol/L (22-30) 02/03/20 13:22 Anion Gap 12 mmol/L 02/03/20 13:22 BUN 4 mg/dL (7-17) L 02/03/20 13:22 Creatinine 0.8 mg/dL (0.6-1.2) 02/03/20 13:22 Estimated GFR > 60 ml/min 02/03/20 13:22 BUN/Creatinine Ratio 5 % 02/03/20 13:22 Glucose 81 mg/dL (65-100) 02/03/20 13:22 Uric Acid 5.8 mg/dL (3.5-7.6) 02/03/20 13:22 Calcium 8.7 mg/dL (8.4-10.2) 02/03/20 13:22 Magnesium 5.60 mg/dL (1.7-2.3) H 02/04/20 01:07 Total Bilirubin 0.20 mg/dL (0.1-1.2) 02/03/20 13:22 AST 24 units/L (5-40) 02/03/20 13:22 ALT 23 units/L (7-56) 02/03/20 13:22 Alkaline Phosphatase 75 units/L (35-129) 02/03/20 13:22 Lactate Dehydrogenase 289 units/L (91-180) H 02/03/20 13:22 Total Protein 6.2 g/dL (6.3-8.2) L 02/03/20 13:22 Albumin 3.2 g/dL (3.9-5) L 02/03/20 13:22 Albumin/Globulin Ratio 1.1 % 02/03/20 13:22 Urine Color Straw (Yellow) 02/03/20 Unknown Urine Turbidity Clear (Clear) 02/03/20 Unknown Urine pH 7.0 (5.0-7.0) 02/03/20 Unknown Ur Specific [place] 1.005 (1.003-1.030) 02/03/20 Unknown Urine Protein <15 mg/dl mg/dL (Negative) 02/03/20 Unknown Urine Glucose (UA) Neg mg/dL (Negative) 02/03/20 Unknown Urine Ketones Neg mg/dL (Negative) 02/03/20 Unknown Urine Blood Neg (Negative) 02/03/20 Unknown Urine Nitrite Neg (Negative) 02/03/20 Unknown Urine Bilirubin Neg (Negative) 02/03/20 Unknown Urine Urobilinogen < 2.0 mg/dL (<2.0) 02/03/20 Unknown Ur Leukocyte Esterase Neg (Negative) 02/03/20 Unknown Urine WBC (Auto) < 1.0 /HPF (0.0-6.0) 02/03/20 Unknown Urine RBC (Auto) < 1.0 /HPF (0.0-6.0) 02/03/20 Unknown U Epithel Cells (Auto) < 1.0 /HPF (0-13.0) 02/03/20 Unknown Syphilis IgG Antibody Nonreactive (NonReactive) 01/30/20 19:30 Blood Type B POSITIVE 01/30/20 19:30 Antibody Screen Negative 01/30/20 19:30 [place]/IV: IV Catheter Type [Right INT / Saline Lock Proximal Port Hand] Active Medications - Current Medications Current Medications: Generic Name Dose Route Start Last Admin Trade Name Fabianq PRN Reason Stop Dose Admin Ferrous Sulfate 325 mg 02/01/20 14:00 02/05/20 21:39 Feosol PO 325 mg BID MICHAEL Administration Hydralazine HCl 5 mg 02/03/20 19:15 Apresoline IV Q30MIN PRN Hypertension Hydrocortisone Acetate 25 mg 01/31/20 11:09 Anucort-Hc IA BID PRN Hemorrhoids Lactated Ringer's 1,000 mls @ 125 mls/hr 01/30/20 20:00 02/03/20 11:42 Lactated Ringers IV 75 mls/hr DIRECT MICHAEL Administration Oxytocin/Sodium Chloride 30 units in 500 mls @ 0 mls/hr 01/31/20 07:00 Pitocin/Ns 30 Unit/500ml IV TITR MICHAEL Protocol As Directed Oxytocin/Sodium Chloride 30 units in 500 mls @ 40 mls/hr 01/31/20 12:00 Pitocin/Ns 30 Unit/500ml IV TITR MICHAEL Protocol Ibuprofen 800 mg 01/31/20 11:09 02/04/20 10:43 Ibuprofen PO 800 mg Q6H PRN Administration Pain, Mild (1-3) Labetalol HCl 300 mg 02/03/20 20:00 02/05/20 20:18 Labetalol PO 300 mg TID MICHAEL Administration Magnesium Hydroxide 30 ml 01/31/20 11:09 Milk Of Magnesia PO QHS PRN Constip Unrelieved By Senna Morphine Sulfate 4 mg 01/31/20 11:09 Morphine IV Q4H PRN Pain , Severe (7-10) Multi-Ingredient Ointment 1 applic 01/31/20 11:09 02/05/20 00:13 Lansinoh TP 1 applic PRN PRN Administration dryness/cracking Naloxone HCl 0.1 mg 01/31/20 11:09 Naloxone IV Q2MIN PRN Res Rate </= 8 or 02 SAT < 92% Ondansetron HCl 4 mg 01/31/20 11:09 Zofran IV Q8H PRN Nausea And Vomiting Oxycodone/Acetaminophen 1 tab 01/31/20 11:09 02/06/20 15:45 Percocet 5/325 PO 1 tab Q6H PRN Administration Pain, Moderate (4-6) Oxycodone/Acetaminophen 2 tab 02/03/20 10:10 02/05/20 18:45 Percocet 5/325 PO 2 tab Q6H PRN Administration Pain, Moderate (4-6) Promethazine HCl 25 mg 01/31/20 11:09 Phenergan IA Q6H PRN N/V IF NPO AND NO IV ACCESS Senna 17.2 mg 01/31/20 11:09 Senokot PO QHS PRN Constipation Simethicone 80 mg 01/31/20 11:09 02/01/20 20:20 Mylicon PO 80 mg Q6H PRN Administration Gas pain Sodium Chloride 10 ml 01/31/20 12:00 Sodium Chloride Flush Syringe 10 Ml IV PRN [facility] Witch Alena/Glycerin 1 each 01/31/20 11:09 Tucks Pad TP PRN PRN Hemorrhoids/cleansing/soothing
[2020-02-06] MEDS: FERROUS SULFATE 325 MG TAB PO SCH (21:59)
[2020-02-06 22:00] VITALS: BP 148/88
== END 2020-02-06 22:45 | disposition home or self-care (01) | DRG 765 ==
LOC: APU 18:28 → LD 20:02 → OB 01-31 14:11 → LD 02-03 12:33 → OB 02-04 14:38
PROVIDERS: ADMIT Obstetrics & Gynecology; ATTEND Obstetrics & Gynecology
PROC: 10D00Z1 Extraction of Products of Conception, Low, Open Approach (ICD-10-PCS; principal; 2020-01-31)
PROC: 3E0234Z Introduction of Serum, Toxoid and Vaccine into Muscle, Percutaneous Approach (ICD-10-PCS; 2020-02-02)
DX: O10.92 Unspecified pre-existing hypertension complicating childbirth (principal); O60.14X0 Preterm labor third trimester with preterm delivery third trimester, not applicable or unspecified; O41.03X0 Oligohydramnios, third trimester, not applicable or unspecified; Z37.0 Single live birth; Z3A.34 34 weeks gestation of pregnancy; O62.1 Secondary uterine inertia; O90.81 Anemia of the puerperium; D64.9 Anemia, unspecified; O14.95 Unspecified pre-eclampsia, complicating the puerperium; Z23 Encounter for immunization
CPT/HCPCS: 36415; 59025; 80053; 81001; 83615; 83735; 84550; 85014; 85018; 85025; 86592; 86850; 86900; 86901; 90471; 90715; G0378; A6250; J0690; J1100; J1885; J2405; J2765; J3475; J3490; J7120